=== PATIENT | female | born 1995 ===

== ENCOUNTER 2017-05-03 18:33 | Emergency (ER) | payer OTHER ==
[2017-05-03 18:33] VITALS: BMI 19.1
[2017-05-03 18:40] VITALS: BP 126/78; PULSE 89; RESP 18; TEMP 99.2; O2SAT 100
--- NOTE | 2017-05-03 19:44 | ED PDOC ---
HPI: Abdomen Time Seen by Provider: 05/03/17 19:01 Chief Complaint (Nursing): Abdominal Pain Chief Complaint (Provider): Right flank pain History Per: Patient History/Exam Limitations: no limitations Onset/Duration Of Symptoms: Hrs Outside of [place] travel?: No Current Symptoms Are (Timing): Still Present Location Of Pain/Discomfort: Other (Rught flank ) Quality Of Discomfort: Sharp, Cramping Associated Symptoms: Nausea (None currently ). denies: Fever, Chills Alleviating Factors: None Additional Complaint(s): No similar in the past. Family history of kidney stones. no urinary symptoms. Past Medical History Reviewed: Historical Data, Nursing Documentation, Vital Signs Vital Signs: Last Vital Signs Temp 99.2 F 05/03/17 18:34 Pulse 89 05/03/17 18:34 Resp 18 05/03/17 18:34 BP 126/78 05/03/17 18:34 Pulse Ox 100 05/03/17 18:34 - Medical History PMH: Asthma Denies: Chronic Kidney Disease - Surgical History Other surgeries: Kidney stones - Family History Family History: States: Unknown Family Hx - Living Arrangements Living Arrangements: With Family - Social History Current smoker - smoking cessation education provided: No Alcohol: Occasional - Home Medications Home Medications: Ambulatory Orders Medication Instructions Recorded Naproxen [Naprosyn] 500 mg PO BID PRN #30 tab 04/21/14 Amoxicillin/Clavulanate [Augmentin 1 tab PO BID #14 tab 03/28/16 875 MG-125 MG] Mometasone Furoate [Nasonex] 2 spray NS DAILY #1 unit 03/28/16 Pseudoephedrine [Sudafed Tab] 60 mg PO DAILY #10 tab 03/28/16 Cyclobenzaprine [Cyclobenzaprine 10 mg PO Q8 PRN #9 tab 06/12/16 HCl] Ibuprofen [Motrin Tab] 600 mg PO Q6 PRN #15 tab 06/12/16 traMADol [Ultram] 50 mg PO TID PRN #12 tab 06/12/16 - Allergies Allergies/Adverse Reactions: Allergies Allergy/AdvReac Type Severity Reaction Status Date / Time No Known Allergies Allergy Verified 06/12/16 15:28 Review of Systems ROS Statement: Except As Marked, All Systems Reviewed And Found Negative Constitutional: Negative for: Fever, Chills Cardiovascular: Negative for: Chest Pain Respiratory: Negative for: Cough, Shortness of Breath Gastrointestinal: Positive for: Nausea, Abdominal Pain (Right flank pain ) Physical Exam - Reviewed Nursing Documentation Reviewed: Yes Vital Signs Reviewed: Yes - Physical Exam Appears: Positive for: Well, Non-toxic, No Acute Distress Head Exam: Positive for: ATRAUMATIC, NORMAL INSPECTION, NORMOCEPHALIC Skin: Positive for: Normal Color, Warm, DRY Eye Exam: Positive for: Normal appearance ENT: Positive for: Normal ENT Inspection Neck: Positive for: Normal, Painless ROM Cardiovascular/Chest: Positive for: Regular Rate, Rhythm Respiratory: Positive for: CNT, Normal Breath Sounds Gastrointestinal/Abdominal: Positive for: Normal Exam, Bowel Sounds, Soft. Negative for: Tenderness Back: Positive for: Normal Inspection Extremity: Positive for: Normal ROM Neurologic/Psych: Positive for: Alert, Oriented - ECG O2 Sat by Pulse Oximetry: 100 Medical Decision Making Medical Decision Making: Endorsed pending labs and CT scan for evaluation of kidney stone. Disposition - Clinical Impression Clinical Impression: Flank pain - Patient ED Disposition Is Patient to be Admitted: Transfer of Care - Disposition Disposition: Transfer of Care Disposition Time: 19:45 Condition: STABLE
[2017-05-03] MEDS: Sodium Chloride 0.9% 1,000 ML IV STA (19:58)
--- NOTE | 2017-05-03 20:21 | ED PDOC ---
- Laboratory Results Result Diagrams: 05/03/17 20:25 05/03/17 20:25 - ECG O2 Sat by Pulse Oximetry: 100 - Progress ED Course And Treament: pt signed out to movie writer pending CT scan to r/o renal stone/colic. Orders Category Date Time Status ABD & PELVIS IV CONTRAST ONLY [CT] Stat CT 05/03/17 19:42 Ordered COMP METABOLIC PANEL Stat Chem 05/03/17 19:44 Ordered ED Urine (POC) Stat ED Care 05/03/17 19:44 Ordered ED Urine dipstick (POC) Stat ED Care 05/03/17 19:44 Ordered CBC (WITH DIFFERENTIAL) Stat NIDA 05/03/17 19:44 Ordered Ketorolac [Toradol] Med 05/03/17 19:46 Discontinued 30 mg .ROUTE .STK-MED ONE Ketorolac [Toradol] Med 05/03/17 19:42 Discontinued 30 mg IV ONCE STA Sodium Chloride 0.9% 1,000 ml Med 05/03/17 19:42 Active IV 1,000 mls/hr URINALYSIS Stat URINALYSIS 05/03/17 19:44 Ordered Medical Decision Making Medical Decision Making: IMPRESSION: 1. No findings to suggest acute appendicitis.Stool is present throughout the colon and rectum, correlate with history of constipation. 2. Punctate right nephrolithiasis. No hydronephrosis. Thank you for allowing us to participate in the care of your patient. Dictated and Authenticated by: Noreen Degroot MD 05/03/2017 10:18 PM Eastern Time ([place] & [place]) Disposition - Clinical Impression Clinical Impression: Flank pain, Nephrolithiasis - POA Present On Arrival: None - Disposition Referrals: [facility] [Outside] Disposition: Routine/Home Disposition Time: 22:33 Condition: STABLE Prescriptions: Ciprofloxacin [Cipro] 250 mg PO BID #14 tab Tamsulosin HCl [Flomax] 0.4 mg PO DAILY #16 cap.er.24h Tramadol HCl [Ultram] 50 mg PO Q6 #15 tab Instructions: Tamsulosin (By mouth), Renal Colic (ED) Forms: [employer] (Iranian) Progress Note - Review of Symptoms General: No: Chills, Night Sweats, Fatigue, Malaise, Appetite, Other HEENT: No: Head Aches, Visual Changes, Eye Pain, Ear Pain, Dysphasia, Sinus Congestion, Post Nasal Drip, Sore Throat, Other Pulmonary: No: Dyspnea, Cough, Pleuritic Chest Pain, Other Cardiovascular: No: Chest Pain, Palpitations, Orthopnea, Paroxysmal Noc. Dyspnea , Edema, Light Headedness, Other Gastrointestinal: No: Nausea, Vomiting, Abdominal Pain, Diarrhea, Constipation, Melena, Hematochezia, Other Genitourinary: No: Dysuria, Frequency, Incontinence, Hematuria, Retention, Other Musculoskeletal: No: Muscle Pain, Joint Pain, Other Neurological: No: Weakness, Numbness, Incoordination, Change in speech, Confusion, Seizures, Other
[2017-05-03 20:51] LABS: BASO # 0.1 K/uL (0.0-0.2); BASO % 1.2 % (0.0-2.0); EOS # 0.4 K/uL (0.0-0.7); EOS % 3.9 % (0.0-4.0); HEMATOCRIT 43.1 % (34.0-47.0); LYMPH # 3.6 K/uL (1.0-4.3); LYMPH % 39.1 % (20.0-40.0); MEAN CORPUSCULAR HEMOGLOBIN 29.2 pg (27.0-31.0); MEAN CORPUSCULAR HGB CONC 33.1 g/dL (33.0-37.0); MEAN PLATELET VOLUME 8.7 fl (7.2-11.7); MONO % 11.2 % (0.0-10.0); NEUT # 4.1 K/uL (1.8-7.0); NEUT % 44.6 % (50.0-75.0); NRBC % 0.1 % (0.0-0.0); RED CELL DISTRIBUTION WIDTH 12.8 % (11.5-14.5); WHITE BLOOD COUNT 9.1 K/uL (4.8-10.8)
[2017-05-03 21:03] LABS: ALB/GLOB RATIO 1.3 (1.0-2.1); ALKALINE PHOSPHATASE 54 U/L (38-126); ALT/SGPT 36 U/L (9-52); AST/SGOT 29 U/L (14-36); BILIRUBIN,TOTAL 0.5 mg/dl (0.2-1.3); BLOOD UREA NITROGEN 12 mg/dl (7-17); CALCIUM 9.8 mg/dL (8.4-10.2); CARBON DIOXIDE 29 mmol/L (22-30); CHLORIDE 102 mmol/L (98-107); GFR AFRICAN-AMERICAN > 60; GLUCOSE,RANDOM 83 mg/dL (65-105); SODIUM 139 mmol/l (132-148); TOTAL PROTEIN 8.2 G/DL (6.3-8.2)
[2017-05-03] MEDS ORDERED: Iohexol 300 100 ML IJ ONE (21:06)
[2017-05-03 22:37] LABS: RBC URINE 6 /hpf (0-3); URINE BACTERIA RARE (<OCC); URINE BILIRUBIN NEGATIVE (NEGATIVE); URINE BLOOD MODERATE (NEGATIVE); URINE COLOR YELLOW (YELLOW); URINE GLUCOSE (UA) NEG (Normal); URINE KETONE NEGATIVE (NEGATIVE); URINE LEUKOCYTE ESTERASE NEG Leu/uL (Negative); URINE PROTEIN NEGATIVE (NEGATIVE); URINE UROBILINOGEN 0.2-1.0 mg/dL (0.2-1.0); WBC URINE 1 /hpf (0-5)
--- NOTE | 2017-05-04 08:29 | CT ---
PROCEDURE: CT Abdomen and Pelvis with contrast HISTORY: right sided pain COMPARISON: None. TECHNIQUE: Following the intravenous administration of iodinated contrast material, a CT examination of the abdomen and pelvis performed from the domes of the diaphragms to the symphysis pubis with reformatted datasets provided not only axial but also sagittal and coronal planes. Oral contrast was not administered as per referring physician request. Contrast dose: Omnipaque 300, 80 cc Radiation dose: Total exam DLP = 252.21 mGy-cm. This CT exam was performed using one or more of the following dose reduction techniques: Automated exposure control, adjustment of the mA and/or kV according to patient size, and/or use of iterative reconstruction technique. FINDINGS: LOWER THORAX: Unremarkable. LIVER: Unremarkable. No gross lesion or ductal dilatation. GALLBLADDER AND BILE DUCTS: Unremarkable. PANCREAS: Unremarkable. No gross lesion or ductal dilatation. SPLEEN: Unremarkable. ADRENALS: Unremarkable. No mass. KIDNEYS AND URETERS: Punctate, intrarenal calculus upper to midpole right kidney, nonobstructive. No hydronephrosis. No solid mass. VASCULATURE: Unremarkable. No aortic aneurysm. BOWEL: Bowel is not appear obstructed and there is relatively prominent retained fecal material identified throughout the colon may indicate an element of constipation. Clinically correlate. Appendix is partially captured filled with gas and is likely within normal limits. Lack oral contrast limits the full evaluation. Clinically correlate further. PERITONEUM: Unremarkable. No free fluid. No free air. LYMPH NODES: Unremarkable. No enlarged lymph nodes. BLADDER: Unremarkable. REPRODUCTIVE: Unremarkable. BONES: No acute fracture. OTHER FINDINGS: None. IMPRESSION: No definite acute findings are appreciated throughout the abdomen and pelvis although prominent retained fecal material throughout the large bowel may indicate an element of constipation. Lack of opacification of bowel loops in the pelvis limits their evaluation as well separation from the adnexal compartments. Likely no evidence of appendicitis however clinically correlate as the full appendix is difficult to completely capture due to lack contrast agent. Solitary intrarenal calculus is nonobstructive at the upper midpole right kidney. Concordant preliminary report from [facility], 05/03/2017.
== END 2017-05-03 22:45 | disposition home or self-care (01) ==
LOC: H.ER 18:33
DX: N20.0 Calculus of kidney (principal); K59.00 Constipation, unspecified; J45.909 Unspecified asthma, uncomplicated
CPT/HCPCS: 74177; 80053; 81003; 81025; 85025; 96374; 99283; J1885; J7040; Q9967

== ENCOUNTER 2018-08-12 12:51 | Emergency (ER) | payer OTHER ==
[2018-08-12 12:52] VITALS: BMI 19.1
[2018-08-12] MEDS ORDERED: Sodium Chloride 0.9% 1,000 ML IV STA (13:16)
[2018-08-12 13:37] LABS: BASO # 0.1 K/uL (0.0-0.2); EOS # 0.2 K/uL (0.0-0.7); EOS % 1.8 % (0.0-4.0); HEMOGLOBIN 14.2 g/dL (12.0-16.0); LYMPH # 2.9 K/uL (1.0-4.3); LYMPH % 26.7 % (20.0-40.0); MEAN CELL VOLUME 87.7 fl (81.0-99.0); MEAN CORPUSCULAR HEMOGLOBIN 29.3 pg (27.0-31.0); MEAN CORPUSCULAR HGB CONC 33.4 g/dL (33.0-37.0); MEAN PLATELET VOLUME 8.1 fl (7.2-11.7); MONO # 0.7 K/uL (0.0-0.8); MONO % 6.4 % (0.0-10.0); NEUT % 64.1 % (50.0-75.0); RBC 4.86 Mil/uL (3.80-5.20); WHITE BLOOD COUNT 10.9 K/uL (4.8-10.8)
[2018-08-12 13:49] LABS: ALB/GLOB RATIO 1.3 (1.0-2.1); ALBUMIN 4.1 g/dL (3.5-5.0); ALT/SGPT 24 U/L (9-52); AST/SGOT 24 U/L (14-36); BLOOD UREA NITROGEN 13 mg/dl (7-17); CALCIUM 9.7 mg/dL (8.4-10.2); GFR NON-AFRICAN AMERICAN > 60
--- NOTE | 2018-08-12 14:51 | ED PDOC ---
HPI: Female Pain Time Seen by Provider: 08/12/18 13:13 Chief Complaint (Nursing): Female Genitourinary Chief Complaint (Provider): Pelvic Pain, Urinary Symptoms History Per: Patient History/Exam Limitations: no limitations Onset/Duration Of Symptoms: Days (x4) Current Symptoms Are (Timing): Still Present Additional Complaint(s): 22 year old female presents to the ED for evaluation of pelvic pain for the past four days described as heaviness associated with vaginal bleeding and abnormal vaginal discharge. She states this is not like her normal period, but notes she just stopped her control which she has been on for five years. She is additionally reporting lightheadedness, dysuria, urinary frequency, and mild lower back pain. Otherwise denies nausea, vomiting. LNMP: end of last month, for three days PMD: [place] Past Medical History Reviewed: Historical Data, Nursing Documentation, Vital Signs Vital Signs: Last Vital Signs Temp 97 F L 08/12/18 13:01 Pulse 82 08/12/18 13:01 Resp 16 08/12/18 13:01 BP 116/80 08/12/18 13:01 Pulse Ox 98 08/12/18 13:01 - Medical History PMH: Asthma Denies: Chronic Kidney Disease - Surgical History Surgical History: No Surg Hx - Family History Family History: States: Unknown Family Hx - Living Arrangements Living Arrangements: With Family - Home Medications Home Medications: Ambulatory Orders Medication Instructions Recorded Naproxen [Naprosyn] 500 mg PO BID PRN #30 tab 04/21/14 Amoxicillin/Clavulanate [Augmentin 1 tab PO BID #14 tab 03/28/16 875 MG-125 MG] Mometasone Furoate [Nasonex] 2 spray NS DAILY #1 unit 03/28/16 Pseudoephedrine [Sudafed Tab] 60 mg PO DAILY #10 tab 03/28/16 Cyclobenzaprine [Cyclobenzaprine 10 mg PO Q8 PRN #9 tab 06/12/16 HCl] Ibuprofen [Motrin Tab] 600 mg PO Q6 PRN #15 tab 06/12/16 traMADol [Ultram] 50 mg PO TID PRN #12 tab 06/12/16 Ciprofloxacin [Cipro] 250 mg PO BID #14 tab 05/03/17 Tamsulosin HCl [Flomax] 0.4 mg PO DAILY #16 cap.er.24h 05/03/17 Tramadol HCl [Ultram] 50 mg PO Q6 #15 tab 05/03/17 Ibuprofen [Motrin] 600 mg PO TID 7 Days tab 08/12/18 - Allergies Allergies/Adverse Reactions: Allergies Allergy/AdvReac Type Severity Reaction Status Date / Time No Known Allergies Allergy Verified 08/12/18 13:01 Review of Systems ROS Statement: Except As Marked, All Systems Reviewed And Found Negative Cardiovascular: Positive for: Light Headedness Gastrointestinal: Negative for: Nausea, Vomiting Genitourinary Female: Positive for: Dysuria, Frequency, Vaginal Discharge, Vaginal Bleeding, Pelvic Pain (heaviness) Musculoskeletal: Positive for: Back Pain (lower) Neurological: Negative for: Dizziness Physical Exam - Reviewed Nursing Documentation Reviewed: Yes Vital Signs Reviewed: Yes - Physical Exam Appears: Positive for: Well, Non-toxic, No Acute Distress Head Exam: Positive for: ATRAUMATIC, NORMOCEPHALIC Skin: Positive for: Normal Color, Warm. Negative for: Rash Eye Exam: Positive for: Normal appearance ENT: Positive for: Normal ENT Inspection Neck: Positive for: Normal, Painless ROM, Supple Cardiovascular/Chest: Positive for: Regular Rate, Rhythm Respiratory: Positive for: Normal Breath Sounds. Negative for: Accessory Muscle Use, Respiratory Distress Gastrointestinal/Abdominal: Positive for: Normal Exam, Soft, Tenderness (lower pelvic diffuse tenderness) Back: Positive for: Normal Inspection. Negative for: L CVA Tenderness, R CVA Tenderness Extremity: Positive for: Normal ROM (all extremities). Negative for: Tenderness Neurological/Psych: Positive for: Awake, Alert, Oriented (x3). Negative for: Motor/Sensory Deficits - Laboratory Results Result Diagrams: 08/12/18 13:33 08/12/18 13:33 Lab Results: Total Bilirubin 0.5 mg/dl (0.2-1.3) 08/12/18 13:33 AST 24 U/L (14-36) 08/12/18 13:33 ALT 24 U/L (9-52) 08/12/18 13:33 Alkaline Phosphatase 69 U/L (38-126) 08/12/18 13:33 Total Protein 7.3 G/DL (6.3-8.2) 08/12/18 13:33 Albumin 4.1 g/dL (3.5-5.0) 08/12/18 13:33 Globulin 3.1 gm/dL (2.2-3.9) 08/12/18 13:33 Albumin/Globulin Ratio 1.3 (1.0-2.1) 08/12/18 13:33 Interpretation Of Abn Labs: no acute - ECG O2 Sat by Pulse Oximetry: 98 (RA) Pulse Ox Interpretation: Normal - Progress ED Course And Treament: 1624: Stable. AAOx3. Pain free. Tolerated PO. FU with pcp. Medical Decision Making Medical Decision Making: Time: 1316 Impression: pelvic pain, UTI Initial Plan: --CMP --U-dip --CBC with differential --Normal saline IV --Toradol 15mg IVP --US transvag --Reevaluation Scribe Attestation: Documented by Meche Phillip, acting as a scribe for Tony Mccallum MD. Provider Scribe Attestation: All medical record entries made by the Scribe were at my direction and personally dictated by me. I have reviewed the chart and agree that the record accurately reflects my personal performance of the history, physical exam, medical decision making, and the department course for this patient. I have also personally directed, reviewed, and agree with the discharge instructions and disposition. Disposition - Clinical Impression Clinical Impression: Pelvic pain - Patient ED Disposition Is Patient to be Admitted: No Counseled Patient/Family Regarding: Studies Performed, Diagnosis, Need For Followup, Rx Given - Disposition [facility] - 08[facility]18 [facility] [Outside] - 08/14/18 Disposition: Routine/Home Disposition Time: 15:30 Condition: STABLE Additional Instructions: Return if not better in 3 days. Prescriptions: Ibuprofen [Motrin] 600 mg PO TID 7 Days tab Instructions: Acute Pelvic Pain (DC)
--- NOTE | 2018-08-12 16:07 | US ---
Date of service: 08/12/2018 HISTORY: Vaginal bleeding COMPARISON: None available. TECHNIQUE: FINDINGS: UTERUS: Measures 7.1 x 2.9 x 3.9 cm. Anteverted normal in size and appearance. No fibroid or other mass lesion seen. ENDOMETRIUM: Measures 8.0 mm in diameter. Unremarkable. CERVIX: Complex fluid collection within the endocervical canal possibly representing hemorrhage. Consider follow-up certified tumor registrar consultation RIGHT OVARY: Measures 1.7 x 2.4 x 1.4 cm. No solid mass. Normal flow. Small cyst or prominent follicle measuring 9 mm in greatest dimension LEFT OVARY: Measures 2.1 x 2.1 x 2.0 cm. No solid mass. Normal flow. FREE FLUID: No significant free fluid noted. OTHER FINDINGS: None. IMPRESSION: Complex fluid collection within the endocervical canal which could represent hemorrhage. Clinical correlation with serum beta HCG. certified tumor registrar consultation suggested. Small on cyst or prominent follicle right ovary.
[2018-08-12 17:43] VITALS: BP 110/70; PULSE 77; RESP 14; TEMP 97.9; O2SAT 99
== END 2018-08-12 16:40 | disposition home or self-care (01) ==
LOC: H.ER 12:51
DX: R10.2 Pelvic and perineal pain (principal); J45.909 Unspecified asthma, uncomplicated; N89.8 Other specified noninflammatory disorders of vagina; N93.9 Abnormal uterine and vaginal bleeding, unspecified
CPT/HCPCS: 76830; 80053; 81025; 85025; 96374; 99283; J1885; J7030